=== PATIENT | male | born 1970 | race Caucasian/White ===

== ENCOUNTER 2016-04-17 09:43 | Emergency (ER) ==
[2016-04-17 09:53] VITALS: BP 146/87; TEMP 97.2; BMI 28.5
[2016-04-17] MEDS ORDERED: LIDOCAINE 1 % AMP 5 ML (SUTURES) SUBCUT STA (09:55)
--- NOTE | 2016-04-17 10:14 | ED.PDOC ---
General ED Provider: Dr. ROCK BHARDWAJ-ER Chief Complaint: Abscess Stated Complaint: demetris got this on my scalp--demetris had them before Time Seen by Physician: 10:00 Mode of Arrival: Walk-In Information Source: Patient, Family Exam Limitations: No limitations Primary Care Provider: TIM SPIVEY Nursing and Triage Documentation Reviewed and Agree: Yes Skin Complaint Exam - Skin/Soft Tissue Complaint/Exam Onset/Duration: 3 days Symptoms Are: Still present Timing: Constant Initial Severity: Mild Current Severity: Mild Location: posterior scalp Character: Reports: Redness, Swelling, Raised, Painful Aggravating: Reports: Touch Alleviating: Reports: None Associated Signs and Symptoms: Reports: Tenderness, Red streaks Related History: Reports: Similar episode Related Surgical History: Reports: None Recent Exposure to Others w/Similar Symptoms: No Skin Findings: Present: Erythema, Induration, Fluctuant mass Joint Tenderness Present: No Differential Diagnoses: Abscess, Infection, Other Review of Systems - Review Of Systems Constitutional: Reports: No symptoms Eyes: Reports: No symptoms Ears, Nose, Mouth, Throat: Reports: No symptoms Respiratory: Reports: No symptoms Cardiac: Reports: No symptoms GI: Reports: No symptoms : Reports: No symptoms Musculoskeletal: Reports: No symptoms Skin: Reports: No symptoms Neurological: Reports: No symptoms Endocrine: Reports: No symptoms Hematologic/Lymphatic: Reports: No symptoms All Other Systems: Reviewed and Negative Past Medical History - Past Medical History Endocrine: Reports: Unknown Cardiovascular: Reports: Unknown Respiratory: Reports: Unknown Hematological: Reports: Unknown Gastrointestinal: Reports: Unknown Genitourinary: Reports: Unknown Neuro/Psych: Reports: Unknown Musculoskeletal: Reports: Unknown Cancer: Reports: Unknown - Surgical History General Surgical History: Reports: Unknown - Family History Family History: Reports: Unknown - Social History Smoking Status: Former smoker Hx Substance Use: No Alcohol Screening: Occasionally Lives: With family Physical Exam - Physical Exam Appearance: Well-appearing, No pain distress, Well-nourished Pain Distress: Mild Eyes: MAAME, EOMI, Conjunctiva clear ENT: Ears normal, Nose normal, Oropharynx normal Neck: Supple Respiratory: Airway patent, Breath sounds clear, Breath sounds equal, Respirations nonlabored Cardiovascular: RRR GI/: Soft, Nontender, No masses, Bowel sounds normal, No Organomegaly Musculoskeletal: Normal strength, ROM intact, No edema, No calf tenderness Skin: Warm, Dry, Normal color Neurological: Sensation intact, Motor intact, Reflexes intact, Cranial nerves intact, Alert, Oriented Psychiatric: Affect appropriate, Mood appropriate Procedures - Incision and Drainage Site: posterior scalp Instrument Used: 11 Blade I & D Procedure: Yes: Hibiclens Prep, Sterile dressing applied, Packing placed Lidocaine Used: Yes Type of Drainage: Present: Pus (cheesy material) Irrigated: No Critical Care Note - Critical Care Note Total Time (mins): 0 Course - Course Orders, Labs, Meds: Orders Category Date Time Status Lidocaine HCl/Pf [Lidocaine 1 % Amp 5 ml (Sutures)] MEDS 04/17/16 09:55 Discontinued 5 ml SUBCUT ONCE STA Medications Discontinued Medications Generic Name Dose Route Start Last Admin Trade Name Freq PRN Reason Stop Dose Admin Lidocaine HCl 5 ml 04/17/16 09:55 Lidocaine 1 % Amp 5 Ml (Sutures) SUBCUT 04/17/16 09:56 ONCE STA Vital Signs: Temp Pulse Resp BP Pulse Ox 04/17/16 09:44 97.2 F L 83 20 146/87 H 95 Departure - Departure Time of Disposition: 10:14 Disposition: HOME SELF-CARE Discharge Problem: Infected sebaceous cyst Instructions: Epidermal Inclusion Cysts (ED) Condition: Good Pt referred to PMD for follow-up: Yes Additional Instructions: return tomorrow to have packing removed--minocin 100mg bid x 7days--norco 5mg q 4hrs prn pain #6 Allergies/Adverse Reactions: Allergies No Known Allergies Allergy (Unverified 04/17/16 09:47) Home Medications: Ambulatory Orders Cetirizine HCl [Zyrtec] 10 mg PO DAILY 04/17/16 Hydrochlorothiazide 12.5 mg PO DAILY 04/17/16 Omeprazole [Prilosec] 20 mg PO QDAC 04/17/16 Simvastatin [Zocor] 20 mg PO BEDTIME 04/17/16 Disposition Discussed With: Patient, Family
== END 2016-04-17 10:29 | disposition home or self-care (01) ==
LOC: ED 09:43
DX: L72.3 Sebaceous cyst (principal)
CPT/HCPCS: 87070; 99282